=== PATIENT | female | born 1945 | race Caucasian/White ===

== ENCOUNTER 2021-10-01 10:13 | Inpatient (IN) | payer OTHER, MEDICAID ==
[~2021-10-01] VITALS: Ht 175.3 cm; Wt 108.9 kg
--- NOTE | ~2021-10-01 | EKG ---
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
--- NOTE | ~2021-10-01 | EMS ---
[address] [place] [address] EMS Patient Care Report Name: EVE COLLADO Room: [facility].R.#: [id number] Admission: Attend Phys: Discharge: Date of : 43 Report #: [id number] THIS REPORT FOR: //name// Report Transmitted: 10/01/2021 09:55 EMS Care Summary JANY Jesus OSCAR Incident [id number] @ 10/01/2021 09:39 Incident Location [address] [place] [address] Patient EVE COLLADO Female, 76 Years 1945 Patient Address [address] [place] [address] Patient History Endocrine Condition - Other,Chronic Kidney Disease,Unspecified dementia,Angina, Patient Allergies No known allergies, Patient Medications Aspirin, Carvedilol, Clonidine, Cozaar, Humalog, Chief Complaint Chest Pain Disposition Transported No Lights/[place] Dispatch Reason Chest Pain (Non-Traumatic) Transported To [facility] Narrative Dispatched to address noted for chest pain. [facility] en route and on scene at time noted. Arrived and found patient in the lobby of the facility, in a wheel chair. Patient was alert and stated that she had chest pain. Another resident had called 911 for her and was present with the RN. Patients RN stated that she [facility] [address] [place] [address] EMS Patient Care Report Name: EVE COLLADO Room: [facility]#: [id number] Admission: Attend Phys: Discharge: Date of : 43 Report #: [id number] did not know what was going on and that the patient is normally confused. Patient stated to me that she has been having chest pain all day and the staff would not let her go to the hospital. Patient was confused. RN stated that she does not care if the patient goes and the patient wanted to be transported to [facility]. Patients had no obvious distress right now. [facility] with [facility] blanket. Paperwork was gathered. Once in ambulance, vitals where taken at time noted including a 12 lead ECG. Patient was given ASA as noted and transport was started. While en route, no major change was noted. Patients vitals had no major findings. Radio report was given at time noted. Arrived and took patient to room 9. Patient was moved to bed and RN was given verbal report RN signed for patient and patient care. END REPORT EMT-P Se Vasquez Initial Vitals @10:04Pain: 02/03, @09:47Pain: 05/06, @09:48SpO2: 99, @09:48SpO2: 99, @09:50SpO2: 99, @09:50SpO2: 98, @09:52SpO2: 99, @09:53SpO2: 97, @09:58SpO2: 99, @10:03SpO2: 97, @10:07SpO2: 99, @09:52 @09:52P: 75,R: 16,BP: 135/62, @10:07P: 75,R: 16,BP: 126/55, @09:52GCS: 14, @10:07GCS: 14, @09:45 Assessments @09:45MENTAL:SKIN:HEENT:LUNG SOUNDS:ABDOMEN:PELVIS//GI:EXTREMITIES:PULSE:NEURO: Impression Chest Pain, Other (Non-Cardiac) Procedures @09:57 Aspirin - 324.000 Milligrams (mg) - Oral Response: Unchanged @09:52 12-Lead ECG Response: UnchangedSucceeded Timeline 09:39,[place] [address] EMS Patient Care Report Name: EVE COLLADO Room: [facility]#: [id number] Admission: Attend Phys: Discharge: Date of : 43 Report #: [id number] 09:39,Psap Call 09:39,Dispatched 09:39,En Route 09:43,On Scene 09:45,At Patient 09:45,BP: / M,PULSE: ,RR: R,SPO2: Ox,ETCO2: ,BG: ,PAIN: ,GCS: , 09:47,BP: / M,PULSE: ,RR: R,SPO2: Ox,ETCO2: ,BG: ,PAIN: 9,GCS: , 09:48,BP: / M,PULSE: ,RR: R,SPO2: 99 Ox,ETCO2: ,BG: ,PAIN: ,GCS: , 09:48,BP: / M,PULSE: ,RR: R,SPO2: 99 Ox,ETCO2: ,BG: ,PAIN: ,GCS: , 09:50,BP: / M,PULSE: ,RR: R,SPO2: 99 Ox,ETCO2: ,BG: ,PAIN: ,GCS: , 09:50,BP: / M,PULSE: ,RR: R,SPO2: 98 Ox,ETCO2: ,BG: ,PAIN: ,GCS: , 09:52,12-Lead ECG,Response: UnchangedSucceeded, 09:52,BP: / M,PULSE: ,RR: R,SPO2: 99 Ox,ETCO2: ,BG: ,PAIN: ,GCS: , 09:52,BP: / M,PULSE: ,RR: R,SPO2: Ox,ETCO2: ,BG: ,PAIN: ,GCS: , 09:52,BP: 135/62 M,PULSE: 75,RR: 16 R,SPO2: Ox,ETCO2: ,BG: ,PAIN: ,GCS: , 09:52,BP: / M,PULSE: ,RR: R,SPO2: Ox,ETCO2: ,BG: ,PAIN: ,GCS: 14, 09:53,BP: / M,PULSE: ,RR: R,SPO2: 97 Ox,ETCO2: ,BG: ,PAIN: ,GCS: , 09:55,Depart Scene 09:57,Aspirin - 324.000 Milligrams (mg) - Oral,Response: Unchanged 09:58,BP: / M,PULSE: ,RR: R,SPO2: 99 Ox,ETCO2: ,BG: ,PAIN: ,GCS: , 10:03,BP: / M,PULSE: ,RR: R,SPO2: 97 Ox,ETCO2: ,BG: ,PAIN: ,GCS: , 10:04,BP: / M,PULSE: ,RR: R,SPO2: Ox,ETCO2: ,BG: ,PAIN: 6,GCS: , 10:07,BP: / M,PULSE: ,RR: R,SPO2: 99 Ox,ETCO2: ,BG: ,PAIN: ,GCS: , 10:07,BP: 126/55 M,PULSE: 75,RR: 16 R,SPO2: Ox,ETCO2: ,BG: ,PAIN: ,GCS: , 10:07,BP: / M,PULSE: ,RR: R,SPO2: Ox,ETCO2: ,BG: ,PAIN: ,GCS: 14, 10:11,At Destination 10:20,Call Closed Disclaimer v1.1 Copyright 2021 [email or web address] This EMS Care Summary contains data elements from the applicable legal record (which may be displayed differently). It is designed to provide pertinent information for the following purposes: continuity of care, clinical quality, and state data reporting. The complete legal record is available to ED staff and administrators of the receiving hospital in [email or web address]'s Patient Tracker. All data is provided "as is."
[~2021-10-01 10:13] MED LIST: AMBIEN 5 MG TABL5 M1 PO; AMITRIPTYLINE H25 M2 PO; ASPIR 8181 M1 PO; CARVEDILOL25 MG PO; CLONAZEPAM 0.50.5 M1 PO; CLONIDINE0.1 PO; COZAAR 50 MG TA50 M2 PO; EFFEXOR XR75 MG PO; GLUCAGEN1 M2 IM; IMDUR 30 MG TAB30 M1 PO; LEVEMIR; LIPITOR10 MG PO; MIRALAX17 GM PO; NOVOLOG100 UNIT/1 SUBQ; ONDANSETRON HCL4 M2 PO; OXYCODONE HCL E15 MG PO; PROTONIX40 M1 PO; RISPERDAL 1 MG T1 MG PO; SENNA LAX8.6 MG PO; TRAZODONE HCL100 MG PO; ZANAFLEX4 MG PO
[2021-10-01 10:17] VITALS: BP 124/57
[2021-10-01 10:46] LABS: ABSOLUTE BASOPHILS 0.1 thou/uL (0.0-0.2); ABSOLUTE EOSINOPHILS 0.3 thou/uL (0.0-0.7); ABSOLUTE MONOCYTES 0.4 thou/uL (0.0-1.2); ABSOLUTE NEUTROPHILS 3.4 thou/uL (1.6-8.1); BASOPHILS 1.2 %; EOSINOPHILS 5.2 %; HEMATOCRIT 35.4 % (37.0-47.0); HEMOGLOBIN 11.8 gm/dL (12.0-15.0); LYMPHOCYTES 19.3 %; MCH 28.4 pg (26.0-34.0); MCHC 33.3 g/dL (28.0-37.0); MCV 85.4 fL (80.0-100.0); MONOCYTES 7.4 %; MPV 7.6 fl. (7.2-11.1); NUCLEATED RBCS 0 /100WBC; PLATELET COUNT* 114 thou/uL (150-400); POLYS 66.9 %; RBC 4.14 mil/uL (4.20-5.00); RDW-CV 13.6 % (10.5-14.5)
[2021-10-01 10:59] LABS: APTT 28.3 Seconds (25.0-31.3); INR 1.1; PROTIME 11.2 Seconds (9.20-11.50)
[2021-10-01 11:24] LABS: CREATININE 1.6 mg/dL (0.6-1.3); POTASSIUM 4.5 mmol/L (3.5-5.1)
[2021-10-01 11:34] LABS: ALBUMIN 3.7 g/dL (3.4-5.0); TOTAL BILIRUBIN 0.3 mg/dL (<0.1-1.0); TOTAL PROTEIN 7.9 g/dL (6.4-8.2)
--- NOTE | 2021-10-01 12:17 | EKG ---
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1945 Requested By: Gracia Rodas Order Number: [id number] MD: Miguel Ángel Krishnamurthy Measurements Intervals [place] Rate: 70 P: 51 WI: 176 QRS: 44 QRSD: 90 T: 93 QT: 429 QTc: 463 Interpretive Statements Sinus rhythm Compared to ECG 05/03/2017 03:05:05 T-wave abnormality no longer present Electronically Signed On 10-01-2021 12:17:17 FORCE DISPATCHER by Miguel Ángel Krishnamurthy [email or web address] <ELECTRONICALLY SIGNED> By: Miguel Ángel Krishnamurthy MD, [facility] 10/01/21 1217 1022 1022 Miguel Ángel Krishnamurthy MD, [facility] /EPI
[2021-10-01 13:30] VITALS: BP 127/62
[2021-10-01 17:30] VITALS: BP 176/95
[2021-10-01 21:30] VITALS: BP 179/113
[2021-10-02] VITALS (7 sets, daily range): BP systolic 146–221; BP diastolic 70–98
[2021-10-02] MEDS ORDERED: COMBIVENT RESPIM4 GM (01:23)
[2021-10-02] MEDS ORDERED: COLACE100 MG PO (01:26)
[2021-10-02] MEDS ORDERED: LORAZEPAM 0.50.5 MG PO (01:29)
[2021-10-02] MEDS ORDERED: PERCOCET 10-321 EAC1 PO (01:31)
[2021-10-02] MEDS ORDERED: REMERON15 M2 PO (01:33)
[2021-10-02] MEDS ORDERED: SERTRALINE HCL100 MG PO (01:35)
[2021-10-02] MEDS ORDERED: TERAZOSIN HCL5 MG PO (01:37)
[2021-10-03] VITALS (7 sets, daily range): BP systolic 85–187; BP diastolic 51–66
[2021-10-03 10:01] LABS: CHOLESTEROL 192 mg/dL (<200); HDL CHOLESTEROL 37 mg/dL (>40); LDL CHOLESTEROL 121 mg/dL (<100); TC:HDL 5.2 Ratio (Not establshd); TRIGLYCERIDE 173 mg/dL (<150); VLDL 35 mg/dL (<40)
[2021-10-03 10:02] LABS: SERUM ASSESSMENT CL
--- NOTE | 2021-10-03 15:21 | 2DMMODE ---
[place] [address] 2 D/M-MODE ECHOCARDIOGRAM Name: EVE COLLADO Room: [address] IN Ced.#: [id number] Admission: 10/01/21 Attend Phys: Neo Painter Discharge: Date of : 43 Date of Service: 10/03/21 1521 Report #: [id number] THIS REPORT FOR: cc: FAM - No family physician/PCP FAM - No family physician/PCP Blu Ruth MD [facility] ~ APPROVED REPORT Study performed: 10/03/2021 13:40:34 EXAM: Comprehensive 2D, Doppler, and color-flow Echocardiogram Patient Location: In-Patient Room #: [facility] Status: routine BSA: 1.55 HR: 92 bpm BP: 117/54 mmHg Rhythm: NSR Other Information Study Quality: Good Indications Chest Pain 2D Dimensions IVSd: 12.28 (7-11mm) LVOT Diam: 21.68 (18-24mm) LVDd: 35.15 mm PWd: 9.98 (7-11mm) Ascending Ao: 30.16 (22-36mm) LVDs: 23.90 (25-40mm) Aortic Root: 32.93 mm Volumes Left Atrial Volume (Systole) LA ESV Index: 26.70 mL/m2 Aortic Valve AoV Peak Juan Antonio.: 1.31 m/s AO Peak Gr.: 6.84 mmHg LVOT Max P.84 mmHg AO Mean Gr.: 4.23 mmHg LVOT Mean P.11 mmHg LVOT Max V: 0.68 m/s AO V2 VTI: 23.55 cm LVOT Mean V: 0.51 m/s JELANI (VTI): 1.85 cm2 LVOT V1 VTI: 11.79 cm AI [place]: 2.72 m/s2 [place] [address] 2 D/M-MODE ECHOCARDIOGRAM Name: EVE COLLADO Room: [address] IN .R.#: [id number] Admission: 10/01/21 Attend Phys: Neo Painter Discharge: Date of : 43 Date of Service: 10/03/21 1521 Report #: [id number] AI PHT: 335.32 ms TDI Medial E' Juan Antonio.: 0.06 m/s Lateral E' Juan Antonio.: 0.07 m/s Pulmonary Valve PV Peak Juan Antonio.: 0.92 m/s PV Peak Gr.: 3.36 mmHg Tricuspid Valve RAP Estimate: 5.00 mmHg TR Peak Gr.: 13.99 mmHg RVSP: 19.00 mmHg PA Pressure: 19.00 mmHg Left Ventricle The left ventricle is normal size. There is normal LV segmental wall motion. Mild concentric left ventricular hypertrophy. Left ventricular systolic function is normal. The left ventricular ejection fraction is within the normal range. LVEF is 60-65%. Grade I - abnormal relaxation pattern. Right Ventricle The right ventricle is normal size. The right ventricular systolic function is normal. Atria The left atrium size is normal. The right atrium size is normal. Aortic Valve Mild aortic valve sclerosis. Mild aortic regurgitation. No hemodynamically significant valvular aortic stenosis. Mitral Valve Mild mitral annular calcification. There is no mitral valve regurgitation noted. No evidence of mitral valve stenosis. Tricuspid Valve The tricuspid valve is normal in structure. Trace tricuspid regurgitation. No pulmonary hypertension. Pulmonic Valve The pulmonary valve is normal in structure. There is no pulmonic valvular regurgitation[place] [address] 2 D/M-MODE ECHOCARDIOGRAM Name: EVE COLLADO Room: [address] IN [facility].#: [id number] Admission: 10/01/21 Attend Phys: Neo Painter Discharge: Date of : 43 Date of Service: 10/03/21 1521 Report #: [id number] The aortic root is normal in size. IVC is normal in size and collapses >50% with inspiration. Pericardium There is no pericardial effusion. <Conclusion> The left ventricle is normal size. Mild concentric left ventricular hypertrophy. Left ventricular systolic function is normal. The left ventricular ejection fraction is within the normal range. LVEF is 60-65%. Grade I - abnormal relaxation pattern. The right ventricle is normal size. The left atrium size is normal. Mild aortic valve sclerosis. Mild aortic regurgitation. No hemodynamically significant valvular aortic stenosis. Mild mitral annular calcification. There is no mitral valve regurgitation noted. The tricuspid valve is normal in structure. IVC is normal in size and collapses >50% with inspiration. There is no pericardial effusion. There is normal LV segmental wall motion. <ELECTRONICALLY SIGNED> By: Blu Ruth MD, FACC 10/03/21 1521 1521 1521 Blu Ruth MD, FACC /INF
[2021-10-04] VITALS: BP 90/53
[2021-10-04 04:28] VITALS: BP 150/69
[2021-10-04 08:00] VITALS: BP 150/52
--- NOTE | 2021-10-04 09:34 | EKG ---
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: [birth year] Requested By: Mariah Mello Order Number: [id number] Paula MD: Blu Ruth Measurements Intervals [place] Rate: 91 P: 69 [place]: 139 QRS: 56 QRSD: 91 T: 83 QT: 379 QTc: 467 Interpretive Statements Sinus rhythm Nonspecific T abnormalities, lateral leads Compared to ECG 10/01/2021 10:22:56 T-wave abnormality now present Electronically Signed On 10-04-2021 9:34:05 CLIENT RELATIONS ASSOCIATE by Blu Ruth [email or web address] <ELECTRONICALLY SIGNED> By: Blu Ruth MD, [facility] 10/04/21 0934 0846 Blu Ruth MD, [facility] /EPI
[2021-10-04 12:59] VITALS: BP 131/47
[2021-10-04 16:08] VITALS: BP 119/46
[2021-10-04 20:00] VITALS: BP 99/41
[2021-10-05 00:09] VITALS: BP 94/45
[2021-10-05 04:49] VITALS: BP 114/46
[2021-10-05 05:31] LABS: ABSOLUTE EOSINOPHILS 0.2 thou/uL (0.0-0.7); ABSOLUTE LYMPHOCYTES 1.7 thou/uL (0.8-5.3); ABSOLUTE MONOCYTES 0.5 thou/uL (0.0-1.2); ABSOLUTE NEUTROPHILS 3.3 thou/uL (1.6-8.1); BASOPHILS 0.5 %; EOSINOPHILS 3.8 %; HEMATOCRIT 29.8 % (37.0-47.0); HEMOGLOBIN 10.1 gm/dL (12.0-15.0); LYMPHOCYTES 29.3 %; MCH 28.9 pg (26.0-34.0); MCV 85.2 fL (80.0-100.0); MPV 8.4 fl. (7.2-11.1); NUCLEATED RBCS 0 /100WBC; PLATELET COUNT* 98 thou/uL (150-400); POLYS 58.4 %; RDW-CV 13.5 % (10.5-14.5); WBC 5.7 thou/uL (4.0-11.0)
[2021-10-05 05:35] LABS: PROTIME 10.7 Seconds (9.20-11.50)
[2021-10-05 05:59] LABS: ALBUMIN 3.1 g/dL (3.4-5.0); CREATININE 3.3 mg/dL (0.6-1.3); TOTAL BILIRUBIN 0.2 mg/dL (<0.1-1.0); TOTAL PROTEIN 6.7 g/dL (6.4-8.2)
[2021-10-05 08:00] VITALS: BP 194/62
--- NOTE | 2021-10-05 11:13 | EKG ---
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
[2021-10-05 18:13] VITALS: BP 153/50
[2021-10-05 20:00] VITALS: BP 146/51
[2021-10-06] VITALS: BP 138/47
[2021-10-06 04:00] VITALS: BP 158/43
[2021-10-06 04:32] LABS: ABSOLUTE EOSINOPHILS 0.1 thou/uL (0.0-0.7); ABSOLUTE LYMPHOCYTES 0.8 thou/uL (0.8-5.3); ABSOLUTE MONOCYTES 0.2 thou/uL (0.0-1.2); ABSOLUTE NEUTROPHILS 1.6 thou/uL (1.6-8.1); BASOPHILS 0.6 %; EOSINOPHILS 4.8 %; HEMOGLOBIN 9.3 gm/dL (12.0-15.0); LYMPHOCYTES 29.2 %; MCH 29.1 pg (26.0-34.0); MCHC 34.4 g/dL (28.0-37.0); MCV 84.6 fL (80.0-100.0); MONOCYTES 8.6 %; MPV 7.9 fl. (7.2-11.1); NUCLEATED RBCS 0 /100WBC; PLATELET COUNT* 72 thou/uL (150-400); POLYS 56.8 %; RBC 3.19 mil/uL (4.20-5.00); RDW-CV 13.2 % (10.5-14.5); WBC 2.9 thou/uL (4.0-11.0)
[2021-10-06 04:42] LABS: CALCIUM 7.4 mg/dL (8.5-10.1); POTASSIUM 4.1 mmol/L (3.5-5.1)
[2021-10-06 04:52] LABS: CREATININE 2.2 mg/dL (0.6-1.3)
[2021-10-06 08:00] VITALS: BP 169/56
[2021-10-06] MEDS ORDERED: CARVEDILOL25 MG PO (12:44)
[2021-10-06] MEDS ORDERED: PROTONIX40 M2 PO (13:26)
[2021-10-06 16:00] VITALS: BP 172/61
--- NOTE | 2021-10-11 12:07 | PATH ---
[facility] [address] [place] [address] PATHOLOGY RPT PROCEDURE Name: KSENIA COLLADO Room: [address] IN M.R.#: [id number] Admission: 10/01/21 Date of : 43 Discharge: 10/06/21 Report #: [id number] Path Case #: [id number] [facility] Accession Number: [id number] . 01 Material submitted: . stomach - ANRAL BIOPSY FOR H. PYLORI . 01 Clinical history: . EGD IN OR . 02 Diagnosis: Antral biopsy: - Moderate nonspecific chronic antral gastritis, negative for Helicobacter pylori organisms and dysplasia. . (GENEVIEVE:thais; 10/10/2021) [facility] 10/10/2021 1233 Local . 02 Comment: Special stain: H. pylori immuno . (GENEVIEVE:thasi; 10/10/2021) . 02 Electronically signed: . Boogie Estevez MD, Pathologist NPI- [id number] . 01 Gross description: . The specimen is received in formalin, labeled "Ksenia Collado, antral bx for H. pylori" and consists of a nascimento irregular tissue measuring 0.3 x 0.2 x 0.2 cm which is submitted in toto in A1.([place]; 10/07/2021) DKA/DKA 10/07/2021 1100 Local . 02 Pathologist provided ICD-10: K29.50 . 02 CPT . 329363, [id number] Specimen Comment: A courtesy copy of this report has been sent to [phone] Specimen Comment: [id number] Specimen Comment: Report sent to / DR ROTH Specimen Comment: A duplicate report has been generated due to demographic updates. Performed at: [address] [id number] MD Erwin Vera MD Phone: [phone] [place] [address] PATHOLOGY RPT PROCEDURE Name: KSENIA COLLADO Room: [address] IN M.R.#: [id number] Admission: 10/01/21 Date of : 43 Discharge: 10/06/21 Report #: [id number] Path Case #: [id number] Performed at: 02 [facility] [address] [facility] [place], [place] [id number] MD Boogie Estevez MD Phone: [phone]
== END 2021-10-06 18:30 | DRG 383 ==
LOC: M.ERS 10:13 → M.TBA-ER 13:07 → M.2W 13:07 → M.TBA-ER 10-02 03:53 → M.2W 10-02 13:24
PROVIDERS: Internal Medicine Gastroenterology; Registered Nurse; ADMIT Internal Medicine; ATTEND Internal Medicine
PROC: 0DB78ZX Excision of Stomach, Pylorus, Via Natural or Artificial Opening Endoscopic, Diagnostic (ICD-10-PCS; principal; 2021-10-06)
DX: K26.9 Duodenal ulcer, unspecified as acute or chronic, without hemorrhage or perforation (principal); N17.0 Acute kidney failure with tubular necrosis; K76.6 Portal hypertension; I20.0 Unstable angina; K74.60 Unspecified cirrhosis of liver; Z20.822 Contact with and (suspected) exposure to COVID-19; K76.0 Fatty (change of) liver, not elsewhere classified; K44.9 Diaphragmatic hernia without obstruction or gangrene; F41.9 Anxiety disorder, unspecified; I10 Essential (primary) hypertension; K21.9 Gastro-esophageal reflux disease without esophagitis; F20.9 Schizophrenia, unspecified; K59.00 Constipation, unspecified; E11.65 Type 2 diabetes mellitus with hyperglycemia; I16.0 Hypertensive urgency; G47.00 Insomnia, unspecified; F03.90 Unspecified dementia, unspecified severity, without behavioral disturbance, psychotic disturbance, mood disturbance, and anxiety; D64.9 Anemia, unspecified; D69.6 Thrombocytopenia, unspecified; K57.10 Diverticulosis of small intestine without perforation or abscess without bleeding; Z88.6 Allergy status to analgesic agent; Z88.1 Allergy status to other antibiotic agents; Z88.8 Allergy status to other drugs, medicaments and biological substances; Z82.49 Family history of ischemic heart disease and other diseases of the circulatory system